=== PATIENT | female | born 1940 | race Caucasian/White ===

== ENCOUNTER → 2016-12-24 | Outpatient (CLI) | payer MEDICARE, OTHER ==
[~2016-12-24] MED LIST: ASPI-558 PO; ATEN50TA66 PO; ATOR20TA59 PO; BETA1TAB20 PO; CHOL200014 PO; DOCU100T10 PO; IBUP-1264 PO; LEVO25TA9 PO; LUTE20CA3 PO; MULT-933 PO; POTA10TA83 PO; TRIA1TAB PO; TURM500C7 PO; [UNRECOGNIZED DRUG - CODE] PO
[2016-12-24 18:25] LABS: BASOPHILS % (AUTO) 0.1 % (0-2); BLOOD, URINE NEGATIVE (NEGATIVE); COLOR,URINE YELLOW (YELLOW); EOSINOPHILS # (AUTO) 0.1 T/MM3 (0-0.5); EOSINOPHILS % (AUTO) 0.6 % (0-4); HCT - HEMATOCRIT 41.1 % (36-46); HGB - HEMOGLOBIN 13.9 GM/DL (12-16); IMMATURE GRANULOCYTE # (AUTO) 0.03 T/MM3 (0.00-0.03); IMMATURE GRANULOCYTE % (AUTO) 0.4 % (0.0-0.5); LEUKOCYTE ESTERASE ,URINE NEGATIVE (NEGATIVE); LYMPHOCYTES # (AUTO) 1.5 T/MM3 (1-4.8); LYMPHOCYTES % (AUTO) 19.4 % (23-45); MEAN CORPUSCULAR HGB 31.6 UUG (26-34); MEAN CORPUSCULAR HGB CONC(MCHC 33.8 GM/DL (31-37); MEAN CORPUSCULAR VOLUME 93.4 UM3 (80-100); MEAN PLATELET VOLUME 10.8 UM3 (9.4-12.4); MONOCYTES # (AUTO) 0.7 T/MM3 (0-0.8); MONOCYTES % (AUTO) 8.7 % (0-9.0); NEUTROPHILS #(AUTO)-ABSOLUTE 5.5 T/MM3 (1.8-7.7); NEUTROPHILS % (AUTO) 70.8 % (33-66); NITRITE,URINE NEGATIVE (NEGATIVE); UROBILINOGEN,URINE 0.2 EU/DL (NORMAL); WBC - WHITE BLOOD COUNT 7.7 T/MM3 (4.5-11.0)
[2016-12-24 18:32] LABS: WBC,URINE NONE SEEN /HPF (0-5)
[2016-12-24 18:33] LABS: BACTERIA,URINE NONE SEEN (NEGATIVE); RBC,URINE 0-1 /HPF (0-3)
[2016-12-24 18:34] LABS: ALBUMIN 4.3 G/DL (3.5-5.0); ALBUMIN/GLOBULIN RATIO 1.4 RATIO (1.1-2.2); ALKALINE PHOSPHATASE 85 U/L (38-126); ALT (SGPT) 34 U/L (9-52); ANION GAP 12 MEQ/L (5-15); AST (SGOT) 26 U/L (14-36); BUN/CREATININE RATIO 22 RATIO (6-26); CALCIUM 9.3 MG/DL (8.4-10.2); CHLORIDE 103 MEQ/L (98-107); CO2 - CARBON DIOXIDE 28 MEQ/L (22-30); CREATININE 1.1 MG/DL (0.7-1.2); GLOMERULAR FILTRATION RATE 49; GLUCOSE 97 MG/DL (65-110); POTASSIUM 3.7 MEQ/L (3.6-5); SODIUM 143 MEQ/L (134-144); TOTAL PROTEIN 7.3 G/DL (6.3-8.2)
[2016-12-24 19:04] LABS: THYROID STIM HORMONE-TSH 2.86 MIU/L (0.47-4.68)
== END ==
LOC: LAB 17:47
PROVIDERS: ATTEND Family Medicine
DX: M62.81 Muscle weakness (generalized) (principal)
CPT/HCPCS: 36415; 80053; 81001; 84443; 85025

== ENCOUNTER → 2017-01-09 | Outpatient (CLI) | payer MEDICARE, OTHER | LOC: WC.BC 13:45 | PROVIDERS: ATTEND Family Medicine | DX: N64.59 Other signs and symptoms in breast (principal); N64.4 Mastodynia | CPT/HCPCS: G0204; G0279 ==